=== PATIENT | male | born 1955 | race Caucasian/White ===

== ENCOUNTER 2021-03-24 02:36 | Emergency (ER) | payer MEDICAID ==
[~2021-03-24] VITALS: Ht 172.7 cm; Wt 69.0 kg
[2021-03-24] MEDS ORDERED: SODIUM CHLORIDE 0.9% 1,000 ML IV ONE (03:00)
[2021-03-24 03:19] LABS: HEMATOCRIT. 29.4 % (42.0-52.0); HEMOGLOBIN. 9.7 g/dL (14.0-18.0); MEAN CORPUSCULAR HEMOGLOBIN 25.3 pg (28.0-32.0); MEAN CORPUSCULAR VOLUME 76.5 fL (80.0-94.0); MEAN PLATELET VOLUME 7.5 fl (7.4-10.4); PLATELET 407 x1000/uL (130-400); RED BLOOD CELL COUNT 3.84 mill/uL (4.7-6.1); RED CELL DISTRIBUTION WIDTH 17.4 % (11.6-14.6)
[2021-03-24 03:26] LABS: CHLORIDE 100 mEq/L (98-107)
[2021-03-24 03:31] LABS: ETHANOL BLOOD < 10 mg/dL
[2021-03-24 03:36] LABS: CREATINE KINASE 79 IU/L (39-308)
[2021-03-24 03:49] LABS: *AMPHETAMINES SCREEN URINE PRESUMTIVE POSITIVE (NEGATIVE); *BARBITURATES SCREEN URINE NEGATIVE (NEGATIVE); *BENZODIAZEPINES SCREEN URINE NEGATIVE (NEGATIVE); *COCAINE SCREEN URINE NEGATIVE (NEGATIVE); CANNABINOID URINE SCREEN NEGATIVE (NEGATIVE); METHADONE URINE SCREEN NEGATIVE (NEGATIVE); OPIATES URINE SCREEN NEGATIVE (NEGATIVE); PHENCYCLIDINE URINE SCREEN NEGATIVE (NEGATIVE)
[2021-03-24] MEDS ORDERED: CEFTRIAXONE SODIUM 1 G/VIAL IM ONE (05:00)
[2021-03-24] MEDS ORDERED: IBUPROFEN 600MG TABLET PO ONE (05:15)
[2021-03-24] MEDS ORDERED: LIDOCAINE HCL 1% 20ML VIAL (Pyxis) INJ INFIL ONE (05:15)
[2021-03-24] MEDS ORDERED: DOXY100T2 MT (05:49)
[2021-03-24] MEDS ORDERED: AZIT250T12 MT (05:49)
[2021-03-24 06:00] VITALS: BP 113/62
== END 2021-03-24 06:24 | disposition home or self-care (01) ==
LOC: ER 02:36
DX: J18.9 Pneumonia, unspecified organism (principal); F15.10 Other stimulant abuse, uncomplicated; Z87.891 Personal history of nicotine dependence; Z20.822 Contact with and (suspected) exposure to COVID-19
CPT/HCPCS: 36415; 71045; 80053; 80305; 80320; 82550; 83880; 84484; 85025; 87426; 93005; 96372; 99285; C9803; J0696; J3490; U0003; U0005; G0480